=== PATIENT | male | born 1980 ===

== ENCOUNTER 2022-11-10 21:01 | Emergency (ER) | payer MEDICAID ==
[~2022-11-10 21:01] MED LIST: ASPI-1238 PO; DIVA250T2 PO; MELO10CA3 PO; OXC5T PO; SERT-413 PO
[2022-11-10] MEDS ORDERED: WATER (STERILE) FOR INJ 10 ML BTL INJ SCH (21:15)
[2022-11-10] MEDS ORDERED: diphenhydrAMINE 50 MG/ML INJ (BENADRYL) IM ONE (21:15)
[2022-11-10] MEDS ORDERED: LACTATED RINGERS 1,000 ML IV ONE ×2 (21:15→21:41)
[2022-11-10] MEDS ORDERED: ZIPRASIDONE 20 MG INJ (GEODON) VIAL IM ONE (21:15)
[2022-11-10 21:27] LABS: BILIRUBIN,URINE NEGATIVE (NEGATIVE); CLARITY,URINE CLEAR; COLOR,URINE YELLOW; GLUCOSE, URINE (UA) NEGATIVE (NEGATIVE); KETONES,URINE NEGATIVE (NEGATIVE); LEUKOCYTE ESTERASE ,URINE NEGATIVE (NEGATIVE); NITRITE,URINE NEGATIVE (NEGATIVE); PROTEIN,URINE NEGATIVE (NEGATIVE)
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
[2022-11-10 21:36] LABS: BACTERIA,URINE NEGATIVE /HPF
[2022-11-10 21:37] LABS: AMPHETAMINE SCREEN, URINE NEGATIVE (NEGATIVE); BARBITURATE SCREEN URINE NEGATIVE (NEGATIVE); BENZODIAZEPINES SCREEN URINE NEGATIVE (NEGATIVE); CANNABINOID SCREEN, URINE POSITIVE (NEGATIVE); COCAINE SCREEN URINE NEGATIVE (NEGATIVE); METHADONE STAT NEGATIVE (NEGATIVE); OPIATE SCREEN URINE NEGATIVE (NEGATIVE); OXYCODONE STAT NEGATIVE (NEGATIVE); PROPOXYPHENE STAT NEGATIVE (NEGATIVE); TRICYCLIC ANTIDEPRESSANTS SCRE NEGATIVE (NEGATIVE)
[2022-11-10 21:45] LABS: BASOPHILS % (AUTO) 1 % (0-10); EOSINOPHILS # (AUTO) 0.1 10^3/uL (0.0-0.3); EOSINOPHILS % (AUTO) 1 % (0-10); HEMATOCRIT 45 % (40-54); HEMOGLOBIN 14.9 g/dL (13.3-17.7); LYMPHOCYTES % (AUTO) 44 % (12-44); MEAN CORPUSCULAR HEMOGLOBIN 31 pg (25-34); MEAN CORPUSCULAR HGB CONC 33 g/dL (32-36); MEAN CORPUSCULAR VOLUME 95 fL (80-99); MEAN PLATELET VOLUME 9.9 fL (9.0-12.2); MONOCYTES # (AUTO) 0.4 10^3/uL (0.0-1.0); MONOCYTES % (AUTO) 8 % (0-12); NEUTROPHILS # (AUTO) 2.1 10^3/uL (1.8-7.8); NEUTROPHILS % (AUTO) 45 % (42-75); PLATELET COUNT 243 10^3/uL (130-400); WHITE BLOOD COUNT 4.6 10^3/uL (4.3-11.0)
[2022-11-10 22:05] LABS: ERYTHROCYTE SEDIMENTATION RATE 2 MM/HR (0-15)
[2022-11-10 22:08] LABS: CHLORIDE 108 MMOL/L (98-107); POTASSIUM 3.3 MMOL/L (3.6-5.0); SODIUM 141 MMOL/L (135-145)
[2022-11-10 22:09] LABS: ALBUMIN 4.5 GM/DL (3.2-4.5)
[2022-11-10 22:10] LABS: CALCIUM 9.3 MG/DL (8.5-10.1)
[2022-11-10 22:11] LABS: AMMONIA 42 UMOL/L (11-32); AMYLASE 150 U/L (25-125); GLUCOSE 82 MG/DL (70-105); TOTAL PROTEIN 7.9 GM/DL (6.4-8.2)
[2022-11-10 22:12] LABS: CARBON DIOXIDE 12 MMOL/L (21-32)
[2022-11-10 22:13] LABS: BILIRUBIN,TOTAL 0.4 MG/DL (0.1-1.0)
[2022-11-10 22:15] LABS: ALKALINE PHOSPHATASE 78 U/L (40-136); CREATININE SERUM 1.05 MG/DL (0.60-1.30)
[2022-11-10 22:16] LABS: BUN/CREATININE RATIO 7; FIBRIN DEGRADATION PRODUCTS < 0.27 UG/ML (0.00-0.49); INR 1.1 (0.8-1.4); PARTIAL THROMBOPLASTIN TIME 31 SEC (24-35); PROTHROMBIN TIME PATIENT 14.8 SEC (12.2-14.7)
[2022-11-10 22:18] LABS: ALANINE AMINOTRANSFERASE 23 U/L (0-55); MAGNESIUM 2.2 MG/DL (1.6-2.4); SALICYLATE < 5.0 MG/DL (5.0-20.0)
[2022-11-10 22:19] LABS: CREATINE KINASE 601 U/L (30-200); LIPASE 24 U/L (8-78)
[2022-11-10 22:27] LABS: CREATINE KINASE MB 3.2 NG/ML (<6.6)
[2022-11-10 22:28] LABS: GFR ESTIMATED 90
[2022-11-10 22:29] LABS: ACETAMINOPHEN < 10 UG/ML (10-30)
[2022-11-10 22:39] LABS: TSH (THYROID ANALYZER) 1.56 UIU/ML (0.35-4.94)
[2022-11-10 22:54] VITALS: BP 111/67
--- NOTE | 2022-11-11 06:23 | Diagnostic Imaging Report ---
PROCEDURE: CT head wo r/o stroke. TECHNIQUE: Multiple contiguous axial images were obtained through the brain without the use of intravenous contrast. Auto Exposure Controls were utilized during the CT exam to meet ALARA standards for radiation dose reduction. INDICATION: Head injury. Seizure. COMPARISON: None. FINDINGS: No intracranial hemorrhage, mass effect, hydrocephalus or extra-axial fluid collections. No CT evidence for territorial infarction. No acute osseous findings. Postoperative changes in the left mandible. The paranasal sinuses and mastoids are clear. IMPRESSION: No acute intracranial CT findings. Agree with preliminary interpretation. Dictated by: Dictated on workstation # [id number]
--- NOTE | 2022-11-11 07:00 | Diagnostic Imaging Report ---
HISTORY: Seizure COMPARISON: 07/31/2022 TECHNIQUE: Frontal view the chest FINDINGS: Lung volumes are normal. No consolidation is seen. There is no pleural effusion or pneumothorax. The cardiac silhouette is normal in size. Left-sided calcified hilar lymph nodes are noted. IMPRESSION: 1. No acute pulmonary abnormality is seen. Dictated by: Dictated on workstation # [id number]
== END 2022-11-10 22:54 ==
LOC: EDUNIT# 21:01 → ER 21:09
DX: F10.129 Alcohol abuse with intoxication, unspecified (principal); G40.909 Epilepsy, unspecified, not intractable, without status epilepticus; F12.90 Cannabis use, unspecified, uncomplicated; Z28.310 Unvaccinated for COVID-19
CPT/HCPCS: 36415; 70450; 71045; 80053; 80306; 80320; 80329; 81000; 82140; 82150; 82550; 82553; 82947; 83690; 83735; 83874; 83880; 84145; 84443; 84484; 85025; 85379; 85610; 85652; 85730; 86141; 93005; 93041